=== PATIENT | male | born 1945 | race Caucasian/White ===

== ENCOUNTER 2017-12-27 07:30 | Inpatient (IN) | payer MEDICARE, BC ==
[2017-12-27] MEDS: GABAPENTIN 300 MG CAP PO ×2 (08:32→20:31)
[2017-12-27] MEDS: traMADol 50 MG TAB PO (08:32)
[2017-12-27] MEDS: DEXAMETHASONE 1 MG TAB PO (08:32)
[2017-12-27] MEDS ORDERED: NEOSTIGMINE 3 MG/3 ML SYRINGE (08:37)
[2017-12-27] MEDS ORDERED: GLYCOPYRROLATE 0.4 MG INJ (08:37)
[2017-12-27] MEDS ORDERED: CEFAZOLIN 1 GM INJ (08:37)
[2017-12-27] MEDS ORDERED: PROPOFOL 20 ML (08:37)
[2017-12-27] MEDS ORDERED: ROCURONIUM 50 MG INJ (08:37)
[2017-12-27] MEDS ORDERED: DEXAMETHASONE 4 MG/ML 1 ML INJ (08:39)
[2017-12-27] MEDS ORDERED: MIDAZOLAM 1 MG/ML 2 ML INJ (08:39)
[2017-12-27] MEDS ORDERED: ONDANSETRON 4 MG INJ (08:39)
[2017-12-27] MEDS ORDERED: FENTAnyl 50 MCG/ML VIAL (08:39)
[2017-12-27] MEDS ORDERED: LACTATED RINGER'S 1,000 ML IV* (09:22)
[2017-12-27] MEDS: THROMBIN 5000 UNIT VIAL (10:00)
[2017-12-27] MEDS: CA CHLORIDE 10% 10 ML SYRINGE (10:00)
[2017-12-27] MEDS: CEFAZOLIN 2 GM/50 ML (PMX) 50 ML IVPB (10:04)
[2017-12-27] MEDS: TRANEXAMIC ACID 1,000 MG in DEXTROSE 5% 100 ML IVPB (10:15)
[2017-12-27] MEDS: POLYMYXIN/BACITRACIN 1L IRRIG (10:44)
[2017-12-27] MEDS: BUPIVACAINE 0.5% (SDV) 30 ML, morphine SULFATE (PF) 8 MG, EPINEPHrine 0.3 MG, KETOROLAC... IRR (10:45)
[2017-12-27] MEDS: SOD CHLORIDE 0.9% 100 ML, TRANEXAMIC ACID 3,000 MG IRR (10:45)
[2017-12-27] MEDS ORDERED: morphine 2 MG INJ IV (12:00)
[2017-12-27] MEDS ORDERED: IPRATROPIUM (NEB) 0.5 MG/2.5 ML AMP HHN (12:00)
[2017-12-27] MEDS ORDERED: MAGNESIUM HYDROXIDE 30ML CUP PO (12:00)
[2017-12-27] MEDS ORDERED: TRIMETHOBENZAMIDE 100 MG/ML VIAL IM (12:00)
[2017-12-27] MEDS ORDERED: DIPHENHYDRAMINE 50 MG INJ IV ×2 (12:00)
[2017-12-27] MEDS ORDERED: hydrALAzine 20 MG INJ IV (12:00)
[2017-12-27] MEDS ORDERED: FENTAnyl 50 MCG/ML VIAL IV ×3 (12:00)
[2017-12-27] MEDS ORDERED: NALOXONE (0.4 MG/ML) INJ IV (12:00)
[2017-12-27] MEDS ORDERED: ONDANSETRON 4 MG INJ IV ×2 (12:00)
[2017-12-27] MEDS ORDERED: ALBUTEROL 0.083% (NEB) 2.5 MG/3 ML AMP HHN (12:00)
[2017-12-27] MEDS ORDERED: EPHEDrine SULFATE 50 MG/5 ML SYG IV (12:00)
[2017-12-27] MEDS ORDERED: LABETALOL HCL 20MG INJ IV (12:00)
[2017-12-27] MEDS ORDERED: KETOROLAC 15 MG INJ IV (12:00)
[2017-12-27] MEDS ORDERED: OXYCODONE/ACETAMINOPHEN (5/325) TAB PO ×3 (12:00)
[2017-12-27] MEDS ORDERED: HYDROmorphONE 1 MG/5 ML IV SYRINGE IV ×3 (12:00)
[2017-12-27] MEDS ORDERED: MIDAZOLAM 1 MG/ML 2 ML INJ IV (12:00)
[2017-12-27] MEDS ORDERED: MEPERIDINE 25 MG INJ IV (12:00)
[2017-12-27] MEDS ORDERED: ACETAMINOPHEN 500 MG TAB PO (12:00)
[2017-12-27] MEDS: CEFAZOLIN 1 GM/50 ML (PMX) 50 ML IVPB (12:29)
[2017-12-27] MEDS ORDERED: CEFAZOLIN 1 GM/50 ML (PMX) 50 ML IVPB (12:29)
[2017-12-27] MEDS: TRANEXAMIC ACID 1,000 MG in DEXTROSE 5% 100 ML IV (12:53)
[2017-12-27] MEDS: LACTATED RINGER'S 1,000 ML IV ×2 (13:05→20:16)
[2017-12-27] MEDS: DEXAMETHASONE 2 MG TAB PO ×2 (13:50→17:40)
[2017-12-27 14:28] LABS: ADD MAN DIFF? NO
[2017-12-27 14:34] LABS: WHITE BLOOD COUNT 14.6 10^3/ul (4.8-10.8)
[2017-12-27 14:34] LABS: BASOPHILS % 0.1 % (0.0-2.0); EOSINOPHILS % 0.2 % (0.0-7.0); HEMATOCRIT 35.6 % (42.0-52.0); HEMOGLOBIN 12.2 g/dl (14.0-18.0); LYMPHOCYTES # 0.8 10^3/ul (0.8-2.9); LYMPHOCYTES % 5.7 % (15.0-51.0); MEAN CORPUSCULAR HEMOGLOBIN 35.1 pg (29.0-33.0); MEAN CORPUSCULAR HGB CONC 34.3 g/dl (32.0-37.0); MEAN CORPUSCULAR VOLUME 102.3 fl (82.0-101.0); MEAN PLATELET VOLUME 10.1 fl (7.4-10.4); MONOCYTE # 0.5 10^3/ul (0.3-0.9); MONOCYTES % 3.2 % (0.0-11.0); NEUTROPHILS % 89.1 % (39.0-77.0); PLATELET COUNT 136 10^3/UL (140-415); POSITIVE DIFF @See below; RED BLOOD COUNT 3.48 10^6/ul (4.70-6.10); RED CELL DISTRIBUTION WIDTH 11.9 % (11.5-14.5)
[2017-12-27] MEDS: morphine 2 MG INJ IV ×2 (16:12→20:13)
[2017-12-27] MEDS ORDERED: morphine SULFATE/PF (10 MG/10 ML) INJ (16:43)
[2017-12-27] MEDS: OXYCODONE/ACETAMINOPHEN (5/325) TAB PO ×2 (17:47→21:44)
[2017-12-27] MEDS: SENNA/DOCUSATE NA (8.6MG/50MG) TAB PO (20:31)
[2017-12-27] MEDS: ZOLPIDEM 5 MG TAB PO (22:55)
[2017-12-28] MEDS: DEXAMETHASONE 2 MG TAB PO ×2 (00:11→06:11)
[2017-12-28] MEDS: morphine 2 MG INJ IV ×2 (00:12→06:11)
[2017-12-28] MEDS: OXYCODONE/ACETAMINOPHEN (5/325) TAB PO ×4 (01:07→14:11)
[2017-12-28] MEDS: CEFAZOLIN 1 GM/50 ML (PMX) 50 ML IVPB ×2 (02:00→10:40)
[2017-12-28] MEDS: ZOLPIDEM 5 MG TAB PO (02:30)
[2017-12-28 05:39] LABS: ADD MAN DIFF? NO; BASOPHILS % 0.1 % (0.0-2.0); HEMOGLOBIN 11.5 g/dl (14.0-18.0); LYMPHOCYTES # 0.8 10^3/ul (0.8-2.9); MEAN CORPUSCULAR HEMOGLOBIN 34.8 pg (29.0-33.0); MEAN CORPUSCULAR HGB CONC 34.8 g/dl (32.0-37.0); MONOCYTE # 1.1 10^3/ul (0.3-0.9); MONOCYTES % 5.9 % (0.0-11.0); NEUTROPHILS % 89.3 % (39.0-77.0); PLATELET COUNT 170 10^3/UL (140-415); RED CELL DISTRIBUTION WIDTH 11.8 % (11.5-14.5)
[2017-12-28 05:39] LABS: WHITE BLOOD COUNT 19.1 10^3/ul (4.8-10.8)
[2017-12-28] MEDS: VALACYCLOVIR 500 MG TAB PO (09:49)
[2017-12-28] MEDS: ASPIRIN 81 MG TAB PO (09:49)
[2017-12-28] MEDS: SENNA/DOCUSATE NA (8.6MG/50MG) TAB PO (09:49)
[2017-12-28] MEDS: PAROXETINE 10 MG TAB PO (10:37)
[2017-12-28] MEDS ORDERED: ATORVASTATIN 10 MG TAB PO (21:00)
== END 2017-12-28 14:30 | disposition home or self-care (01) | DRG 470 ==
LOC: REC 07:30 → MS1 13:23
PROVIDERS: Orthopaedic Surgery
PROC: 0SR904A Replacement of Right Hip Joint with Ceramic on Polyethylene Synthetic Substitute, Uncemented, Open Approach (ICD-10-PCS; principal; 2017-12-27 10:00)
DX: M16.11 Unilateral primary osteoarthritis, right hip (principal); I25.10 Atherosclerotic heart disease of native coronary artery without angina pectoris; E78.5 Hyperlipidemia, unspecified; E66.9 Obesity, unspecified; Z68.32 Body mass index [BMI] 32.0-32.9, adult; Z85.46 Personal history of malignant neoplasm of prostate
CPT/HCPCS: 72170; 73530; 85025; 86999; 87086; 88304; 88311; 97110; 97116; 97161; 97530